=== PATIENT | male | born 1985 | race Caucasian/White ===

== ENCOUNTER 2019-01-22 01:05 | Emergency (ER) | payer BC, OTHER ==
[~2019-01-22] VITALS: Ht 193 cm; Wt 104.5 kg
[2019-01-22 01:12] VITALS: BP 135/86
[2019-01-22] MEDS ORDERED: penicillin G benzathine 1.2 million unit/2ml syringe IM ONE (01:35)
[2019-01-22] MEDS ORDERED: azithromycin 250mg tablet PO ONE (01:40)
[2019-01-22] MEDS ORDERED: CefTRIAXone 250MG IM Kit w/LIDOcaine IM ONE (01:40)
[2019-01-25 06:24] LABS: RPR Reactive (Non Reactive)
== END 2019-01-22 02:20 | disposition home or self-care (01) ==
LOC: ER 01:06
DX: R21 Rash and other nonspecific skin eruption (principal); Z11.4 Encounter for screening for human immunodeficiency virus [HIV]; R20.2 Paresthesia of skin; J02.9 Acute pharyngitis, unspecified
CPT/HCPCS: 36415; 86592; 86696; 87491; 87591; 96372; 99283; J0561; J0696

== ENCOUNTER 2020-09-25 00:40 | Inpatient (IN) | payer BC, OTHER ==
[~2020-09-25] VITALS: Ht 190.5 cm; Wt 122.1 kg
[2020-09-25] VITALS (17 sets, daily range): BP systolic 115–173; BP diastolic 60–95
[2020-09-25] MEDS ORDERED: naloxone 2mg/2ml inj IV STA ×3 (00:53→01:43)
--- NOTE | 2020-09-25 01:24 | NUR ---
patient is able to speak and let me know "i did some white powder stuff i found in parking lot." patient gcs is now 15 after 6 mg narcan, patients hob 60 degrees for aspiration percautions still needs 6 l nc to keep spo2 above 92 %
[2020-09-25] MEDS: naloxone 2mg/2ml inj 2 MG in normal saline 500ml IV soln 498 ML IV SCH ×2 (01:55→08:17)
--- NOTE | 2020-09-25 02:08 | NUR ---
dr. langford verbalized to order narcan drip 125ml/hr 2 mg 500ml bag of NS due to patients slow response to the narcan pushes
--- NOTE | 2020-09-25 02:38 | NUR ---
SPOKE WITH POISON CONTROL, STATES TO KEEP WITH NARCAN DRIP DUE TO THE RESPONSE FROM THE NARCAN TO DO COMPLETE LAB WITH ASA,TYLENOL,CMP,BMP IF LABS ARE WITH IN NORMAL LIMITS TO CONTINUE WITH NARCAN DRIP 4-6 HRS
[2020-09-25 02:59] LABS: BASOPHILS % (AUTO) 0.3 % (0-1); EOSINOPHILS % (AUTO) 0.1 % (0-6); HEMATOCRIT 47.9 % (42.0-52.0); HEMOGLOBIN 16.4 g/dl (14.0-17.9); LYMPHOCYTES # (AUTO) 1.3 X10'3 (1.1-4.8); LYMPHOCYTES % (AUTO) 10.9 % (21-51); MEAN CORPUSCULAR HEMOGLOBIN 31.7 PG (27.0-31.0); MEAN CORPUSCULAR HGB CONC 34.2 g/dL (33.0-36.5); MEAN CORPUSCULAR VOLUME 92.6 FL (78-98); MEAN PLATELET VOLUME 7.7 FL (7.4-10.4); MONOCYTES # (AUTO) 0.8 X10'3 (0-0.9); MONOCYTES % (AUTO) 6.4 % (2-12); NEUTROPHILS % (AUTO) 82.3 % (42-75); PLATELET COUNT 417 X10'3 (140-440); RED BLOOD COUNT 5.17 X10'6 (4.70-6.10); RED CELL DISTRIBUTION WIDTH 12.8 % (11.5-14.5); WHITE BLOOD COUNT 12.2 X10'3 (4.5-11.0)
--- NOTE | 2020-09-25 03:05 | NUR ---
40 mg etomidate - 0305 100 mg rocuronium - 0306 intubation attempt - 0306 HR 98, O2 SAT 88% BVM @ 15 L, BP 131/98 intubation at 0309
[2020-09-25 03:14] LABS: ALANINE AMINOTRANSFERASE 117 U/L (12-78); ALBUMIN 3.9 G/DL (3.4-5.0); ALBUMIN/GLOBULIN RATIO 1.1 (1.1-1.5); ALKALINE PHOSPHATASE 87 IU/L (46-116); ANION GAP 11 (8-16); ASPARTATE AMINO TRANSFERASE 59 U/L (10-37); BILIRUBIN,TOTAL 0.2 MG/DL (0.1-1.0); BLOOD UREA NITROGEN 13 MG/DL (7-18); BUN/CREATININE RATIO 9.8 (5.4-32.0); CALCIUM 8.3 MG/DL (8.5-10.1); CHLORIDE 106 MMOL/L (99-107); CREATININE 1.33 MG/DL (0.60-1.10); GLUCOSE 106 MG/DL (70-104); POTASSIUM 3.9 MMOL/L (3.5-5.1); SODIUM 144 MMOL/L (135-145); TOTAL CARBON DIOXIDE 26.8 MMOL/L (24-32); TOTAL PROTEIN 7.4 G/DL (6.4-8.2); eGFR 62 ML/MIN
[2020-09-25] MEDS: propofol 1000mg/100ml bottle 100 ML IV SCH ×3 (03:19→08:18)
[2020-09-25 03:22] LABS: ETHANOL < 0.010 GM/DL (0.0-0.010)
[2020-09-25 03:25] LABS: ACETAMINOPHEN < 2.0 UG/ML (10-30)
--- NOTE | 2020-09-25 03:27 | NUR ---
FIO2 INCREASED TO 50% BY RT DUE TO LOW SATS OF 86%, GOOD WAVEFORM ON MONITOR.
[2020-09-25 03:33] LABS: ABG BASE EXCESS -5.6 mmol/L (-2.0-2.0); ABG OXYGEN SATURATION 90.5 % (94-97); ABG PCO2 (T) 56.4 mmHg (35.0-48.0); ABG PO2 (T) 64.6 mmHg (75.0-100.0); ALLEN'S TEST POSITIVE; FCOHb 2.1 % (0.0-3.9); FO2Hb 88.6 % (94-97); PEEP 5 cm H2O; RESPIRATORY RATE 16 b/min; TIDAL VOLUME 500 mL; TOTAL HEMOGLOBIN 17.3 G/dl (14.0-18.0)
[2020-09-25 04:01] LABS: URINE AMPHETAMINE SCREEN POSITIVE (Neg); URINE BARBITUATE SCREEN NEGATIVE (Neg); URINE BENZODIAZEPINES SCREEN NEGATIVE (Neg); URINE CANNABINOID SCREEN NEGATIVE (Neg); URINE COCAINE SCREEN NEGATIVE (Neg); URINE METHADONE SCREEN NEGATIVE (Neg); URINE OPIATE SCREEN NEGATIVE (Neg); URINE PHENCYCLIDINE SCREEN NEGATIVE (Neg)
[2020-09-25 04:11] LABS: COLOR,URINE YELLOW (Yellow); GLUCOSE, URINE 100 mg/dl (Neg); KETONES,URINE NEGATIVE (Neg); LEUKOCYTE ESTERASE ,URINE TRACE (Neg); NITRITES, URINE NEGATIVE (Neg); OCCULT BLOOD,URINE TRACE-INTACT (Neg); PROTEIN,URINE NEGATIVE (Neg); UROBILINOGEN,URINE 0.2 E.U/dL (0.2-1.0)
[2020-09-25 04:14] LABS: UA COLLECTION TYPE FOLEY CATH
[2020-09-25 04:15] LABS: CLARITY,URINE SLIGHTLY CLOUDY (Clear)
--- NOTE | 2020-09-25 04:17 | NUR ---
madhav christian [phone]
[2020-09-25 04:19] LABS: BACTERIA,URINE FEW /HPF (Neg); MUCUS STRANDS FEW /LPF (Neg); RBC,URINE 0-2 /HPF (0-2); SQUAMOUS EPITHELIAL CELL,UR MODERATE /LPF (FEW); TRANSITIONAL EPI CELLS,URINE MODERATE /HPF; WBC CLUMPS,URINE FEW /HPF (NEGATIVE)
[2020-09-25] MEDS ORDERED: metroNIDAZOLE-Flagyl 500mg/NS 100 ML IV STA (04:38)
[2020-09-25] MEDS ORDERED: CefTRIAXone 2gm/D5W 50ml BAG 50 ML IV ONE (04:40)
[2020-09-25] MEDS ORDERED: vancomycin/NS 1 GM ADD-VANTAGE 250 ML IV ONE (04:40)
[2020-09-25] MEDS ORDERED: acetaminophen 325mg tablet PO PRN ×2 (05:15)
[2020-09-25] MEDS ORDERED: ondansetron/PF 4mg/2ml inj IV PRN (05:15)
[2020-09-25] MEDS ORDERED: LIDOcaine 2% 10ml TOPICAL JELLY (Urojet) TP ONE (05:15)
[2020-09-25] MEDS ORDERED: magnesium hydroxide 30ml (MOM) UD suspension PO PRN (05:15)
--- NOTE | 2020-09-25 05:32 | NUR ---
CALLED ICU TO GIVE REPORT, ICU CN STATED DUE TO THE COVID SWAB PENDING TO WAIT FOR DAY SHIFT OR UNTIL COVID SWAB RESULTS ARE IN TO GIVE REPORT , ED CN AWARE CALLED NURSE MUSEUM EDUCATOR SUP AWARE
--- NOTE | 2020-09-25 06:21 | NUR ---
GAVE REPORT TO RUPA VALDEZ FROM ICU NO QUESTIONS OR CONCERNS AFTER ASSUMING CARE
[2020-09-25] MEDS ORDERED: etomidate 2mg/ml inj. ONE (08:00)
[2020-09-25] MEDS ORDERED: rocuronium 10mg/ml inj IV ONE (08:00)
[2020-09-25] MEDS ORDERED: sod chloride 0.9% 10ml flush syringe IV ONE (08:00)
[2020-09-25] MEDS ORDERED: naloxone 2mg/2ml inj ONE (08:00)
[2020-09-25] MEDS: pantoprazole 40MG/NS 100ML BAG 100 ML IV SCH ×4 (08:03→21:13)
[2020-09-25] MEDS: sodium bicarbonate (8.4%) inj. 75 MEQ in sodium chloride 0.45% 500ml 500 ML IV SCH ×4 (08:17→22:25)
[2020-09-25] MEDS ORDERED: normal saline 1000ml 1,000 ML IV ONE (10:15)
[2020-09-25] MEDS ORDERED: NO HOME MEDS (10:33)
[2020-09-25] MEDS ORDERED: thiamine inj. 100 MG in normal saline 100ml IV soln 99 ML IV SCH (10:56)
[2020-09-25 11:12] LABS: CREATINE KINASE 194 U/L (39-308)
[2020-09-25] MEDS: enoxaparin 40mg/0.4ml syringe SQ SCH (11:17)
[2020-09-25 11:31] LABS: ABG BASE EXCESS 0.2 mmol/L (-2.0-2.0); ABG OXYGEN SATURATION 96.8 % (94-97); ABG PCO2 (T) 45.7 mmHg (35.0-48.0); ABG PO2 (T) 83.5 mmHg (75.0-100.0); FCOHb 0.8 % (0.0-3.9); FMetHb 0.3 % (0.0-1.5); FO2Hb 95.7 % (94-97); PATIENT TEMPERATURE 36.7; PEEP 5 cm H2O; RESPIRATORY RATE 20 b/min; TIDAL VOLUME 541 mL; TOTAL HEMOGLOBIN 14.9 G/dl (14.0-18.0)
[2020-09-25] MEDS: folic acid 1mg/0.2ml inj IV SCH (11:49)
--- NOTE | 2020-09-25 11:53 | NUR ---
Initial: Pt presented to ER with ALOC s/p suspected illicit drug overdose; pt admit with aspiration PNA, respiratory distress and respiratory acidosis per EMR. RN reported pt throwing up with stomach contents appearing dark, unsure if contents contained blood per RN at critical care rounds. MD ordered thiamine/folic acid given EtOH hx. Pt intubated with OG placed for suction per RN; no TF consult however TF recs below in case prolonged mechanically ventilated and to receive nutrition support. Pending physical assessment. No documented BM. Will continue to monitor closely. Recommendations: 1) IF TF, Continuous TF via OG tube using Vital High Protein at 95 ml/hr goal rate. To provide 2280 ml total volume, 2280 kcal, 200 g protein, and 1915 ml water. 2) IF TF, additional water flushes 100 ml q 4H, monitor serum Na 3) IF TF, PALB q Thursday/; daily wts 4) Thiamine and Folic acid per MD 5) Routine bowel care Addendum: 09/25/20 at [address] Amended: Links added. Addendum: 09/25/20 at [address] I have reviewed and agree with note by Training Representative. Eusebia Morales RD
[2020-09-25] MEDS: midazolam 100mg in NS 100 ML INFUSION IV PRN (12:09)
[2020-09-25 12:13] LABS: OCCULT BLOOD STOOL NEGATIVE (Neg)
--- NOTE | 2020-09-25 12:59 | NUR ---
0630 received report assumed care of patient 0800- wakes up, opens eyes to command, squeezes hands 0900- pt gags when awake, vomiting copious amounts of dark brown possible reddish stomach contents and food particles, OG is too suction but vomitus if very thick, MD here, dc narcan drip, bolus 10 mil of propofol. 1000- Critical care rounds- change sedation to versed, keep propofol for PRN, add lovenox, run a CPK, repeat ABG, give 1 lt NS bolus, add thiamine and folic. Remain intubated today due to aspiration and reeval tomorrow. 1200- Reported to MD ABG results, RT had increased rate to 22, reported anbx were 1x order only, added vanco and start zosyn, reported CPK results. No other new orders
[2020-09-25] MEDS: VANCOmycin 1250MG/NS 250ml Bag 250 ML IV SCH (14:16)
[2020-09-25] MEDS: piperacillin/tazo 3.375gm/50ml 50 ML IV SCH (16:05)
--- NOTE | 2020-09-25 18:22 | NUR ---
Patient in room ICU 2040. I have received report from COURTNEY León and had the opportunity to ask questions and assume patient care.
--- NOTE | 2020-09-25 20:38 | NUR ---
Dr. Haynes called. Patient has order for Sodium Bicarb drip at 100ml/hr with directions for discontinuation of drip when Bicarb level is over 24. Current bicarb is 26.8. Infusion has been stopped. No new orders given for additional fluid at this time.
[2020-09-26] VITALS (24 sets, daily range): BP systolic 119–156; BP diastolic 72–88
[2020-09-26] MEDS: piperacillin/tazo 3.375gm/50ml 50 ML IV SCH ×4 (00:02→23:32)
[2020-09-26] MEDS: pantoprazole 40MG/NS 100ML BAG 100 ML IV SCH ×5 (01:32→21:26)
[2020-09-26] MEDS: VANCOmycin 1250MG/NS 250ml Bag 250 ML IV SCH (01:54)
[2020-09-26] MEDS: midazolam 100mg in NS 100 ML INFUSION IV PRN (02:07)
[2020-09-26 03:22] LABS: ABG BASE EXCESS 0.2 mmol/L (-2.0-2.0); ABG HCO3 24.1 mmol/L (22.0-26.0); ABG OXYGEN SATURATION 93.6 % (94-97); ABG PCO2 (T) 37.9 mmHg (35.0-48.0); ABG PO2 (T) 64.7 mmHg (75.0-100.0); ALLEN'S TEST POSITIVE; FCOHb 0.9 % (0.0-3.9); FMetHb 0.2 % (0.0-1.5); FO2Hb 92.6 % (94-97); PATIENT TEMPERATURE 37.5; PEEP 5 cm H2O; RESPIRATORY RATE 22 b/min; TIDAL VOLUME 500 mL; TOTAL HEMOGLOBIN 14.2 G/dl (14.0-18.0)
[2020-09-26 03:29] LABS: BASOPHILS # (AUTO) 0.1 X10'3 (0-0.2); BASOPHILS % (AUTO) 0.6 % (0-1); EOSINOPHILS # (AUTO) 0.1 X10'3 (0-0.9); EOSINOPHILS % (AUTO) 0.6 % (0-6); HEMATOCRIT 39.6 % (42.0-52.0); HEMOGLOBIN 13.6 g/dl (14.0-17.9); LYMPHOCYTES # (AUTO) 1.8 X10'3 (1.1-4.8); LYMPHOCYTES % (AUTO) 17.5 % (21-51); MEAN CORPUSCULAR HEMOGLOBIN 31.9 PG (27.0-31.0); MEAN CORPUSCULAR HGB CONC 34.4 g/dL (33.0-36.5); MEAN CORPUSCULAR VOLUME 92.9 FL (78-98); MEAN PLATELET VOLUME 8.3 FL (7.4-10.4); MONOCYTES # (AUTO) 0.8 X10'3 (0-0.9); MONOCYTES % (AUTO) 7.5 % (2-12); NEUTROPHILS # (AUTO) 7.5 X10'3 (1.8-7.7); NEUTROPHILS % (AUTO) 73.8 % (42-75); PLATELET COUNT 284 X10'3 (140-440); RED BLOOD COUNT 4.26 X10'6 (4.70-6.10); WHITE BLOOD COUNT 10.2 X10'3 (4.5-11.0)
[2020-09-26 03:43] LABS: ALANINE AMINOTRANSFERASE 65 U/L (12-78); ALBUMIN 2.7 G/DL (3.4-5.0); ALBUMIN/GLOBULIN RATIO 0.8 (1.1-1.5); ALKALINE PHOSPHATASE 61 IU/L (46-116); ANION GAP 8 (8-16); ASPARTATE AMINO TRANSFERASE 23 U/L (10-37); BILIRUBIN,TOTAL 1.5 MG/DL (0.1-1.0); BLOOD UREA NITROGEN 12 MG/DL (7-18); BUN/CREATININE RATIO 12.2 (5.4-32.0); CHLORIDE 109 MMOL/L (99-107); CREATININE 0.98 MG/DL (0.60-1.10); GLUCOSE 112 MG/DL (70-104); MAGNESIUM 1.9 MG/DL (1.5-2.4); PHOSPHORUS 2.1 MG/DL (2.3-4.5); POTASSIUM 3.4 MMOL/L (3.5-5.1); SODIUM 143 MMOL/L (135-145); TOTAL CARBON DIOXIDE 26.5 MMOL/L (24-32); TOTAL PROTEIN 5.9 G/DL (6.4-8.2); TRIGLYCERIDES 154 MG/DL (20-135); eGFR 88 ML/MIN
[2020-09-26] MEDS ORDERED: potassium phosphate inj 30 MMOL in normal saline 500ml IV soln 500 ML IV ONE (05:00)
--- NOTE | 2020-09-26 05:00 | NUR ---
Rounds with Dr. Frost. Update on patient status. Reviewed patients current lab values. Electrolyte replacement ordered. MD to place order for fluid replacement. Restraint order renewed.
[2020-09-26] MEDS: ringers solution, lacted 1,000 ML IV SCH ×2 (05:41→15:29)
--- NOTE | 2020-09-26 05:48 | NUR ---
Patient is able to wake up, open eyes to verbal, Patient moves all extremities. When awake patient pulling on restraints, attempting to sit up in bed. Patient follows commands. Patients mother called during shift for an update on patients condition. She lives in [place].
--- NOTE | 2020-09-26 06:32 | NUR ---
Problems reprioritized. Patient report given, questions answered & plan of care reviewed with COURTNEY Finney.
[2020-09-26] MEDS: thiamine inj. 100 MG in normal saline 100ml IV soln 100 ML IV SCH (08:00)
[2020-09-26] MEDS: folic acid 1mg/0.2ml inj IV SCH (08:00)
[2020-09-26] MEDS: enoxaparin 40mg/0.4ml syringe SQ SCH (08:40)
[2020-09-26] MEDS: vancomycin/NS 1 GM ADD-VANTAGE 250 ML IV SCH ×2 (10:24→17:45)
[2020-09-26] MEDS: propofol 1000mg/100ml bottle 100 ML IV SCH (12:51)
--- NOTE | 2020-09-26 14:16 | NUR ---
girlfriend at bedside updated on plan of care
--- NOTE | 2020-09-26 18:30 | NUR ---
Patient in room ICU 2040. I have received report from Sharmin VALDEZ and had the opportunity to ask questions and assume patient care.
[2020-09-26] MEDS: lactobacillus rhamnosus 10,000 MMU CELLS/CAPSULE PO SCH (19:51)
[2020-09-27] VITALS (23 sets, daily range): BP systolic 105–154; BP diastolic 48–93
[2020-09-27] MEDS: ringers solution, lacted 1,000 ML IV SCH ×3 (00:12→21:00)
[2020-09-27] MEDS: propofol 1000mg/100ml bottle 100 ML IV SCH (00:12)
[2020-09-27] MEDS: pantoprazole 40MG/NS 100ML BAG 100 ML IV SCH ×4 (01:00→16:00)
[2020-09-27] MEDS: vancomycin/NS 1 GM ADD-VANTAGE 250 ML IV SCH ×2 (02:05→10:14)
[2020-09-27 02:52] LABS: BASOPHILS # (AUTO) 0.1 X10'3 (0-0.2); BASOPHILS % (AUTO) 0.9 % (0-1); EOSINOPHILS # (AUTO) 0.2 X10'3 (0-0.9); HEMATOCRIT 34.4 % (42.0-52.0); HEMOGLOBIN 11.8 g/dl (14.0-17.9); LYMPHOCYTES # (AUTO) 1.8 X10'3 (1.1-4.8); LYMPHOCYTES % (AUTO) 24.8 % (21-51); MEAN CORPUSCULAR HEMOGLOBIN 31.9 PG (27.0-31.0); MEAN CORPUSCULAR HGB CONC 34.3 g/dL (33.0-36.5); MEAN CORPUSCULAR VOLUME 92.9 FL (78-98); MEAN PLATELET VOLUME 8.3 FL (7.4-10.4); MONOCYTES # (AUTO) 0.7 X10'3 (0-0.9); MONOCYTES % (AUTO) 10.1 % (2-12); NEUTROPHILS # (AUTO) 4.5 X10'3 (1.8-7.7); NEUTROPHILS % (AUTO) 61.2 % (42-75); PLATELET COUNT 273 X10'3 (140-440); RED BLOOD COUNT 3.71 X10'6 (4.70-6.10); RED CELL DISTRIBUTION WIDTH 12.8 % (11.5-14.5); WHITE BLOOD COUNT 7.3 X10'3 (4.5-11.0)
[2020-09-27 03:08] LABS: ALANINE AMINOTRANSFERASE 33 U/L (12-78); ALBUMIN 1.9 G/DL (3.4-5.0); ALBUMIN/GLOBULIN RATIO 0.7 (1.1-1.5); ALKALINE PHOSPHATASE 43 IU/L (46-116); ANION GAP 12 (8-16); ASPARTATE AMINO TRANSFERASE 8 U/L (10-37); BILIRUBIN,TOTAL 0.8 MG/DL (0.1-1.0); CALCIUM 7.6 MG/DL (8.5-10.1); CHLORIDE 106 MMOL/L (99-107); CREATININE 0.62 MG/DL (0.60-1.10); GLUCOSE 70 MG/DL (70-104); POTASSIUM 3.6 MMOL/L (3.5-5.1); SODIUM 139 MMOL/L (135-145); TOTAL CARBON DIOXIDE 21.5 MMOL/L (24-32); TOTAL PROTEIN 4.5 G/DL (6.4-8.2); eGFR > 90 ML/MIN
[2020-09-27 03:23] LABS: BLOOD UREA NITROGEN 8 MG/DL (7-18); BUN/CREATININE RATIO 12.9 (5.4-32.0)
[2020-09-27] MEDS: enoxaparin 40mg/0.4ml syringe SQ SCH (08:00)
[2020-09-27] MEDS: folic acid 1mg/0.2ml inj IV SCH (08:31)
[2020-09-27] MEDS: lactobacillus rhamnosus 10,000 MMU CELLS/CAPSULE PO SCH ×2 (08:31→19:54)
[2020-09-27] MEDS: piperacillin/tazo 3.375gm/50ml 50 ML IV SCH ×2 (08:31→16:06)
[2020-09-27] MEDS: thiamine inj. 100 MG in normal saline 100ml IV soln 100 ML IV SCH (08:31)
[2020-09-27] MEDS ORDERED: VANCOMYCIN LEVEL IV ONE (09:30)
--- NOTE | 2020-09-27 14:21 | NUR ---
Cruz dc'd balloon intact.
--- NOTE | 2020-09-27 15:35 | NUR ---
pt requesting to leave AMA citing financial concerns, not being able to smoke. pt encourage to stay. MD informed and at bedside. pt will stay another 24 hours.
[2020-09-27] MEDS: nicotine 21mg patch - 24 hr TD SCH (15:38)
[2020-09-27] MEDS: VANCOmycin 1250MG/NS 250ml Bag 250 ML IV SCH (18:42)
[2020-09-28] VITALS (14 sets, daily range): BP systolic 128–149; BP diastolic 69–86
[2020-09-28] MEDS: piperacillin/tazo 3.375gm/50ml 50 ML IV SCH ×3 (00:59→14:36)
[2020-09-28] MEDS: ringers solution, lacted 1,000 ML IV SCH (00:59)
[2020-09-28] MEDS: VANCOmycin 1250MG/NS 250ml Bag 250 ML IV SCH ×2 (02:05→10:28)
[2020-09-28 03:51] LABS: BASOPHILS # (AUTO) 0.1 X10'3 (0-0.2); BASOPHILS % (AUTO) 0.7 % (0-1); EOSINOPHILS # (AUTO) 0.3 X10'3 (0-0.9); EOSINOPHILS % (AUTO) 4.1 % (0-6); HEMATOCRIT 39.1 % (42.0-52.0); HEMOGLOBIN 13.3 g/dl (14.0-17.9); LYMPHOCYTES # (AUTO) 1.8 X10'3 (1.1-4.8); LYMPHOCYTES % (AUTO) 21.7 % (21-51); MEAN CORPUSCULAR HEMOGLOBIN 31.5 PG (27.0-31.0); MEAN CORPUSCULAR VOLUME 92.6 FL (78-98); MEAN PLATELET VOLUME 8.7 FL (7.4-10.4); MONOCYTES # (AUTO) 0.7 X10'3 (0-0.9); NEUTROPHILS # (AUTO) 5.6 X10'3 (1.8-7.7); NEUTROPHILS % (AUTO) 65.5 % (42-75); PLATELET COUNT 327 X10'3 (140-440); RED BLOOD COUNT 4.22 X10'6 (4.70-6.10); RED CELL DISTRIBUTION WIDTH 12.2 % (11.5-14.5); WHITE BLOOD COUNT 8.5 X10'3 (4.5-11.0)
[2020-09-28 04:00] LABS: ALBUMIN 2.6 G/DL (3.4-5.0); ANION GAP 9 (8-16); BLOOD UREA NITROGEN 8 MG/DL (7-18); BUN/CREATININE RATIO 9.4 (5.4-32.0); CALCIUM 8.4 MG/DL (8.5-10.1); CHLORIDE 107 MMOL/L (99-107); CREATININE 0.85 MG/DL (0.60-1.10); GLUCOSE 106 MG/DL (70-104); POTASSIUM 3.7 MMOL/L (3.5-5.1); SODIUM 143 MMOL/L (135-145); TOTAL CARBON DIOXIDE 27.5 MMOL/L (24-32); eGFR > 90 ML/MIN
[2020-09-28] MEDS: thiamine inj. 100 MG in normal saline 100ml IV soln 100 ML IV SCH (07:15)
[2020-09-28] MEDS: folic acid 1mg/0.2ml inj IV SCH (07:16)
[2020-09-28] MEDS: lactobacillus rhamnosus 10,000 MMU CELLS/CAPSULE PO SCH (07:17)
[2020-09-28] MEDS: enoxaparin 40mg/0.4ml syringe SQ SCH (07:24)
--- NOTE | 2020-09-28 10:55 | NUR ---
Reassessment: Pt extubated 09/27. Pt documented as A/O x 4, diet advanced to regular. Pt documented with 75-100% PO intake first meal down to average 50-75% PO intake at two following meals with 100% PO intake of protein. Pt being seen by dietetics professor for food preferences. [facility] 09/28. No nutrition intervention implemented at this time. Will continue to follow and make recommendations as appropriate. Recommendations: 1) Continue regular diet 2) Monitor need for ONS 3) Continue routine Thiamine and Folic acid per MD 4) Bowel care per rx 5) Scaled weights per rx Addendum: 09/28/20 at [address] Amended: Links added.
[2020-09-28] MEDS: nicotine 21mg patch - 24 hr TD SCH (14:36)
[2020-09-28] MEDS ORDERED: LEVO750T46 PO (16:13)
--- NOTE | 2020-09-28 17:20 | NUR ---
Pt discharged at 1715. Girlfriend here to sisal picker.
[2020-09-28] MEDS ORDERED: VANCOMYCIN LEVEL IV ONE (17:30)
== END 2020-09-28 17:17 | disposition home or self-care (01) | DRG 917 ==
LOC: ER 00:41 → ED HOLD 05:12 → ICU 2S 06:55 → CICU 2S 09-27 05:07
PROVIDERS: ADMIT Internal Medicine Pulmonary Disease; ATTEND Internal Medicine Pulmonary Disease
PROC: 5A1945Z Respiratory Ventilation, 24-96 Consecutive Hours (ICD-10-PCS; principal; 2020-09-25)
PROC: 0BH17EZ Insertion of Endotracheal Airway into Trachea, Via Natural or Artificial Opening (ICD-10-PCS; 2020-09-25)
DX: T43.621A Poisoning by amphetamines, accidental (unintentional), initial encounter (principal); J69.0 Pneumonitis due to inhalation of food and vomit; G93.41 Metabolic encephalopathy; J96.01 Acute respiratory failure with hypoxia; N17.0 Acute kidney failure with tubular necrosis; E87.2 Acidosis; Z20.822 Contact with and (suspected) exposure to COVID-19; E87.6 Hypokalemia; F15.90 Other stimulant use, unspecified, uncomplicated; Y92.89 Other specified places as the place of occurrence of the external cause
CPT/HCPCS: 31500; 36415; 36556; 36600; 71045; 80048; 80053; 80202; 80305; 80320; 80329; 81001; 82272; 82550; 82803; 82948; 83735; 84100; 84443; 84478; 85018; 85025; 87070; 87077; 87081; 87088; 87186; 87635; 93005; 94003; 94760; 96374; 96375; 99291; 99292; C9113; C9803; G0378; J0696; J1650; J2310; J2543; J2704; J3370; J3411; J3490; J7030; J7040; J7120

== ENCOUNTER 2024-04-03 02:55 | Emergency (ER) | payer MEDICAID ==
[~2024-04-03] VITALS: Ht 193 cm; Wt 116.0 kg
[~2024-04-03 02:55] MED LIST: NO HOME MEDS
[2024-04-03 02:59] VITALS: BP 152/101; PULSE 113; TEMP 98.7; O2SAT 98
[2024-04-03] MEDS ORDERED: DOXY100C43 PO (03:35)
[2024-04-03 03:49] VITALS: RESP 18
[2024-04-03] MEDS: DOXYCYCLINE 100MG CAPSULE PO STA (04:03)
== END 2024-04-03 03:56 | disposition home or self-care (01) ==
LOC: ER 02:56
DX: L73.9 Follicular disorder, unspecified (principal); F12.90 Cannabis use, unspecified, uncomplicated; F15.90 Other stimulant use, unspecified, uncomplicated; E11.9 Type 2 diabetes mellitus without complications; Z79.4 Long term (current) use of insulin
CPT/HCPCS: 99283